=== PATIENT | female | born 1955 | race Caucasian/White ===

== ENCOUNTER 2020-11-09 15:26 | Inpatient (IN) | payer SELFPAY ==
[2020-11-09] MEDS ORDERED: Amiodarone 150 MG, Admixture Fee 1 EACH in Dextrose 5% in Water 100 ML IVPB SCH (16:45)
[2020-11-09] MEDS ORDERED: Amiodarone 450 MG, Admixture Fee 1 EACH in Dextrose 5% in Water 250 ML IVPB SCH (16:45)
[2020-11-09] MEDS ORDERED: Diltiazem 125 MG/25 ML ONE (19:31)
[2020-11-09] MEDS ORDERED: Ondansetron ODT 4 MG TAB PO PRN (21:52)
[2020-11-09] MEDS ORDERED: Ondansetron PF 4 MG/2 ML Vial IVP PRN (21:52)
[2020-11-09] MEDS ORDERED: Acetaminophen 650 MG Suppository PR PRN (21:52)
[2020-11-09] MEDS ORDERED: Enoxaparin Sodium 80 MG/0.8 ML SYRINGE SC SCH (22:00)
[2020-11-09] MEDS ORDERED: Diltiazem 125 MG in Sodium Chloride 0.9% 100 ML IVPB SCH (23:45)
[2020-11-10 00:30] VITALS: BMI 35.9
[2020-11-10] MEDS: Acetaminophen 325 MG TAB PO PRN ×2 (00:39→12:33)
[2020-11-10 03:28] LABS: #Basophils 0.1 thou/uL (0.0-0.2); #Eosinphils 0.1 thou/uL (0.0-0.7); #Lymphocytes 4.4 thou/uL (1.20-3.40); #Monocytes 0.9 thou/uL (0.11-0.59); #Neutrophils 4.9 thou/uL (1.40-6.50); %Basophils 1.1 % (0.0-1.0); %Eosinophils 1.1 % (0.0-10.0); %Lymphocytes 42.5 % (21.0-51.0); %Monocytes 8.2 % (0.0-10.0); Hemoglobin 16.2 g/dL (12.0-16.0); Mean Corpuscular HGB CONC 32.7 g/dL (32.0-36.0); Mean Corpuscular Hemoglobin 30.5 pg (27.0-31.0); Mean Corpuscular Volume 93.3 fL (78.0-98.0); Mean Platelet Volume 9.3 fL (7.4-10.4); Platelet Count 249 thou/uL (130-400); RBC Distribution Width 12.4 % (11.5-14.5); White Blood Cell (WBC) Count 10.3 thou/uL (4.8-10.8)
[2020-11-10 03:48] LABS: Anion Gap 15 mmol/L (10-20); BUN (Urea Nitrogen) 21 mg/dL (9.8-20.1); Calc. Creatinine Clearance 84 mL/min (70-130); Calcium 9.1 mg/dL (7.8-10.44); Carbon Dioxide 21 mmol/L (23-31); Chloride 105 mmol/L (98-107); Glucose 117 mg/dL (80-115); Hemoglobin A1c 7.4 % (4.0-6.0); Potassium 4.7 mmol/L (3.5-5.1); Sodium 136 mmol/L (136-145)
[2020-11-10] MEDS ORDERED: Enoxaparin Sodium 40 MG/0.4 ML SYRINGE SC SCH (09:00)
[2020-11-10 16:56] VITALS: BP 136/82; TEMP 97.8
[2020-11-10] MEDS ORDERED: Apixaban 5 MG TAB PO SCH (21:00)
[2020-11-10] MEDS ORDERED: Enoxaparin Sodium 80 MG/0.8 ML SYRINGE SC SCH (21:00)
== END 2020-11-10 19:10 | disposition home or self-care (01) | DRG 310 ==
LOC: ERS 15:26 → ERHOLD 18:00 → 2NO 11-10 00:10
PROVIDERS: ADMIT Internal Medicine; ATTEND Family Medicine
DX: I48.91 Unspecified atrial fibrillation (principal); I08.1 Rheumatic disorders of both mitral and tricuspid valves; I48.3 Typical atrial flutter; I10 Essential (primary) hypertension; R73.9 Hyperglycemia, unspecified; K76.0 Fatty (change of) liver, not elsewhere classified; E66.9 Obesity, unspecified; Z68.36 Body mass index [BMI] 36.0-36.9, adult; Z87.440 Personal history of urinary (tract) infections; Z79.899 Other long term (current) drug therapy; Z87.891 Personal history of nicotine dependence; Z88.1 Allergy status to other antibiotic agents; Z88.0 Allergy status to penicillin; Z79.82 Long term (current) use of aspirin; Z86.16 Personal history of COVID-19; Z87.01 Personal history of pneumonia (recurrent)
CPT/HCPCS: 36415; 80048; 83036; 85025; 93005; 93306; 96365; 96366; J0282; J1650; J3490; J7070

== ENCOUNTER 2020-11-17 22:27 | Inpatient (IN) | payer SELFPAY ==
[2020-11-18] MEDS ORDERED: Acetaminophen 325 MG TAB PO PRN (02:48)
[2020-11-18] MEDS ORDERED: Ondansetron PF 4 MG/2 ML Vial IVP PRN (02:48)
[2020-11-18 02:49] VITALS: BMI 36.7
[2020-11-18] MEDS ORDERED: hydrALAZINE 20 MG/ML VIAL SLOW IVP PRN (02:50)
[2020-11-18 03:30] VITALS: TEMP 98
[2020-11-18 05:04] LABS: #Basophils 0.1 thou/uL (0.0-0.2); #Eosinphils 0.1 thou/uL (0.0-0.7); #Lymphocytes 3.6 thou/uL (1.20-3.40); #Monocytes 0.8 thou/uL (0.11-0.59); #Neutrophils 5.4 thou/uL (1.40-6.50); %Basophils 0.9 % (0.0-1.0); %Eosinophils 0.9 % (0.0-10.0); %Lymphocytes 36.2 % (21.0-51.0); %Monocytes 7.7 % (0.0-10.0); %Neutrophils 54.4 % (42.0-75.0); Hemoglobin 15.4 g/dL (12.0-16.0); Mean Corpuscular HGB CONC 31.4 g/dL (32.0-36.0); Mean Corpuscular Hemoglobin 29.7 pg (27.0-31.0); Mean Corpuscular Volume 94.7 fL (78.0-98.0); Mean Platelet Volume 8.9 fL (7.4-10.4); Platelet Count 200 thou/uL (130-400); RBC Distribution Width 12.4 % (11.5-14.5); Red Blood Cell (RBC) Count 5.18 mill/uL (4.20-5.40); White Blood Cell (WBC) Count 9.9 thou/uL (4.8-10.8)
[2020-11-18 05:20] LABS: Anion Gap 12 mmol/L (10-20); BUN (Urea Nitrogen) 16 mg/dL (9.8-20.1); Calc. Creatinine Clearance 89 mL/min (70-130); Calcium 9.3 mg/dL (7.8-10.44); Carbon Dioxide 25 mmol/L (23-31); Chloride 104 mmol/L (98-107); Glucose 136 mg/dL (80-115); Potassium 4.3 mmol/L (3.5-5.1); Sodium 137 mmol/L (136-145)
[2020-11-18 08:20] LABS: ALT (SGPT) 83 U/L (8-55); AST (SGOT) 55 U/L (5-34); Albumin 3.2 g/dL (3.4-4.8); Alkaline Phosphatase 104 U/L (40-110); Bilirubin, Direct 0.2 mg/dL (0.1-0.3); Bilirubin, Total 0.5 mg/dL (0.2-1.2); Protein, Total 7.7 g/dL (5.8-8.1)
[2020-11-18 08:38] LABS: Free T4 (Free Thyroxine) 0.89 ng/dL (0.70-1.48); Thyroid Stimulating Hormone 1.5536 uIU/mL (0.35-4.94)
[2020-11-18] MEDS ORDERED: Apixaban 5 MG TAB PO SCH (09:00)
[2020-11-18] MEDS ORDERED: Aspirin 81 mg Enteric Coated Tablet PO SCH (09:00)
[2020-11-18] MEDS ORDERED: Metoprolol Tartrate 25 MG TAB PO SCH (09:00)
[2020-11-18 09:46] LABS: HBCM Index 0.08 S/CO (0-0.79); HBSAg Index 0.13 S/CO (0-0.99); Hep A IgM AB Non-Reactive (NonReactive); Hep A IgM S/CO 0.18 S/CO (0-0.79); Hep B Surf Ag Non-Reactive S/CO (NonReactive); Hepatitis B Core IgM Abs Non-Reactive (NonReactive)
[2020-11-18 09:54] LABS: Hep C IgG Ab Reflex HepC Qnt (NonReactive); Hep C Index 13.24 S/CO (0-0.79)
[2020-11-20 17:36] LABS: Hep C PCR-Quant 742000 IU/mL (.)
== END 2020-11-18 14:43 | disposition home or self-care (01) | DRG 310 ==
LOC: 2NO 22:27
PROVIDERS: ADMIT Internal Medicine; ATTEND Internal Medicine
DX: I48.92 Unspecified atrial flutter (principal); I10 Essential (primary) hypertension; K74.60 Unspecified cirrhosis of liver; Z20.822 Contact with and (suspected) exposure to COVID-19; E11.9 Type 2 diabetes mellitus without complications; Z88.1 Allergy status to other antibiotic agents; Z88.0 Allergy status to penicillin; Z79.82 Long term (current) use of aspirin; Z79.899 Other long term (current) drug therapy; Z87.891 Personal history of nicotine dependence
CPT/HCPCS: 36415; 80048; 80074; 80076; 83735; 84439; 84443; 84481; 85025; 87522; J0360

== ENCOUNTER 2020-11-28 14:29 | Outpatient (CLI) | payer SELFPAY ==
[2020-11-28 15:30] LABS: Hemoglobin 14.8 g/dL (12.0-15.5); Mean Corpuscular HGB CONC 32.9 g/dL (32.0-36.0); Mean Corpuscular Hemoglobin 30.3 pg (27.0-33.0); Platelet Count 271 10x3/uL (150-450); RBC Distribution Width 13.5 % (11.5-14.5); Red Blood Cell (RBC) Count 4.89 10x6/uL (3.90-5.03); White Blood Cell (WBC) Count 9.9 10x3/uL (3.5-10.5)
[2020-11-28 15:57] LABS: INR-International Normal Ratio 1.1
[2020-11-28 16:02] LABS: Anion Gap 15 mmol/L (10-20); BUN (Urea Nitrogen) 21 mg/dL (9.8-20.1); Calc. Creatinine Clearance 0 mL/min (70-130); Calcium 9.8 mg/dL (7.8-10.44); Carbon Dioxide 22 mmol/L (23-31); Chloride 108 mmol/L (98-107); Glucose 69 mg/dL (80-115); Potassium 4.5 mmol/L (3.5-5.1); Sodium 140 mmol/L (136-145)
== END 2020-11-28 14:30 | disposition home or self-care (01) ==
LOC: LABBT 14:29
PROVIDERS: ATTEND Internal Medicine Cardiovascular Disease
DX: Z01.812 Encounter for preprocedural laboratory examination (principal); I48.3 Typical atrial flutter; Z20.822 Contact with and (suspected) exposure to COVID-19
CPT/HCPCS: 80048; 85027; 85610

== ENCOUNTER 2020-12-01 06:57 | Day surgery (SDC) | payer SELFPAY ==
[2020-11-29 15:34] VITALS: BMI 34.7
[2020-12-01] MEDS ORDERED: Heparin 10,000 UNITS/ 10 ML VIAL ONE (08:22)
[2020-12-01] MEDS ORDERED: Heparin 25,000 units/D5W 0 ML ONE (08:22)
[2020-12-01] MEDS ORDERED: Lidocaine 1% (PF) 30 ML VIAL ONE (09:10)
[2020-12-01] MEDS ORDERED: SUGAMMADEX SODIUM 200 MG/2 ML VIAL ONE (10:15)
[2020-12-01] MEDS ORDERED: Protamine Sulfate 50 MG/5 ML VIAL ONE (10:41)
[2020-12-01] MEDS ORDERED: Fentanyl 100 MCG/2 ML VIAL ONE (10:48)
[2020-12-01] MEDS ORDERED: Propofol 500 MG/50 ML VIAL ONE (10:50)
[2020-12-01] MEDS ORDERED: PHENYLEPHRINE-NS 100 MCG/ML 10 ML SYRINGE ONE (10:52)
[2020-12-01] MEDS ORDERED: ePHEDrine 50 MG/ML VIAL ONE (10:52)
[2020-12-01] MEDS ORDERED: PROPOFOL 200 MG/20 ML VIAL ONE (10:52)
[2020-12-01] MEDS ORDERED: Midazolam HCl 2 mg/2 ml Vial ONE (10:58)
[2020-12-01] MEDS ORDERED: HYDROcodone/Acetaminophen 5/325 mg Tablet ONE (13:40)
== END 2020-12-01 17:21 | disposition home or self-care (01) ==
LOC: CCL 06:57
PROVIDERS: ATTEND Internal Medicine Cardiovascular Disease
PROC: 4A023FZ Measurement of Cardiac Rhythm, Percutaneous Approach (ICD-10-PCS; principal; 2020-12-01)
PROC: 02583ZZ Destruction of Conduction Mechanism, Percutaneous Approach (ICD-10-PCS; principal; 2020-12-01)
PROC: 02K83ZZ Map Conduction Mechanism, Percutaneous Approach (ICD-10-PCS; principal; 2020-12-01)
DX: I48.3 Typical atrial flutter (principal); I10 Essential (primary) hypertension; E11.9 Type 2 diabetes mellitus without complications; K76.0 Fatty (change of) liver, not elsewhere classified; Z86.16 Personal history of COVID-19; Z79.01 Long term (current) use of anticoagulants; Z79.899 Other long term (current) drug therapy; Z88.0 Allergy status to penicillin; Z88.1 Allergy status to other antibiotic agents
CPT/HCPCS: 93005; 93613; 93621; 93653; C1731; C1894; C2630; J1644; J2001; J2250; J2704; J2720; J3010; J3490

== ENCOUNTER 2021-08-10 09:59 | Outpatient (CLI) | payer OTHER | END 2021-08-10 10:00 | disposition home or self-care (01) | LOC: BICRAD 09:59 | PROVIDERS: ATTEND Internal Medicine | DX: Z02.71 Encounter for disability determination (principal) | CPT/HCPCS: 71046; 72100 ==

== ENCOUNTER 2022-11-27 08:53 | Outpatient (CLI) | payer OTHER | END 2022-11-27 08:54 | disposition home or self-care (01) | LOC: ULT 08:53 | PROVIDERS: ATTEND Physician Assistant Medical | DX: K80.20 Calculus of gallbladder without cholecystitis without obstruction (principal); B18.2 Chronic viral hepatitis C | CPT/HCPCS: 76705 ==

== ENCOUNTER 2023-08-12 11:11 | Outpatient (CLI) | payer OTHER | END 2023-08-12 11:12 | disposition home or self-care (01) | LOC: ULT 11:11 | PROVIDERS: ATTEND Internal Medicine Gastroenterology | DX: B18.2 Chronic viral hepatitis C (principal); K80.20 Calculus of gallbladder without cholecystitis without obstruction; K76.89 Other specified diseases of liver | CPT/HCPCS: 76705 ==

== ENCOUNTER 2023-09-12 23:09 | Emergency (ER) | payer OTHER ==
[2023-09-13 00:04] LABS: Influenza A by NAA Not Detected (NotDetected); Influenza B by NAA Not Detected (NotDetected); SARS-CoV-2 NAA Rapid Test DETECTED (NotDetected)
[2023-09-13] MEDS ORDERED: Dexamethasone 10 MG/ML VIAL ONE (00:28)
[2023-09-13] MEDS ORDERED: diphenhydrAMINE 25 MG CAP ONE (00:28)
[2023-09-13] MEDS ORDERED: Ibuprofen 800 MG TAB ONE (00:29)
== END 2023-09-13 01:14 | disposition home or self-care (01) ==
LOC: ERS 23:09
DX: U07.1 COVID-19 (principal); I10 Essential (primary) hypertension; Z87.891 Personal history of nicotine dependence
CPT/HCPCS: 0240U; J1100; 99283

== ENCOUNTER 2024-02-12 09:10 | Outpatient (CLI) | payer OTHER | END 2024-02-12 09:11 | disposition home or self-care (01) | LOC: ULT 09:10 | PROVIDERS: ATTEND Physician Assistant Medical | DX: B18.2 Chronic viral hepatitis C (principal); Z53.20 Procedure and treatment not carried out because of patient's decision for unspecified reasons; R93.2 Abnormal findings on diagnostic imaging of liver and biliary tract | CPT/HCPCS: 76705 ==

== ENCOUNTER 2024-10-22 09:32 | Outpatient (CLI) | payer OTHER, MEDICAID ==
[2024-10-22 10:12] LABS: Estimated GFR - POC 80.0
== END 2024-10-22 09:33 | disposition home or self-care (01) ==
LOC: CT 09:32
PROVIDERS: ATTEND Family Medicine
DX: D35.00 Benign neoplasm of unspecified adrenal gland (principal); E27.8 Other specified disorders of adrenal gland
CPT/HCPCS: 36415; 74170; 82565